=== PATIENT | female | born 1995 | race Hispanic/Latino ===

== ENCOUNTER 2019-02-18 00:51 | Emergency (ER) | payer OTHER ==
[2019-02-18 01:10] VITALS: BP 118/81; PULSE 93; RESP 20; TEMP 99; O2SAT 99
--- NOTE | 2019-02-18 01:37 | C.PDOC ---
History Of Present Illness 23 y/o female presents to ED complaining of suprapubic pain and pressure when urinating that started earlier today. Patient has history of UTI. Denies fever, vaginal bleeding or discharge, nausea, vomiting, or other complaints. Time Seen by Provider: 02/18/19 01:09 Chief Complaint (Nursing): Female Genitourinary History Per: Patient History/Exam Limitations: no limitations Onset/Duration Of Symptoms: Hrs Current Symptoms Are (Timing): Still Present Past Medical History Reviewed: Historical Data, Nursing Documentation, Vital Signs Vital Signs: Last Vital Signs Temp 99.0 F 02/18/19 01:03 Pulse 93 H 02/18/19 01:03 Resp 20 02/18/19 01:03 BP 118/81 02/18/19 01:03 Pulse Ox 99 02/18/19 01:03 Primary Care Provider: [facility] Family History: States: No Known Family Hx - Social History Hx Alcohol Use: Yes Hx Substance Use: No - Immunization History Hx Tetanus Toxoid Vaccination: Yes Hx Influenza Vaccination: No Hx Pneumococcal Vaccination: No Review Of Systems Except As Marked, All Systems Reviewed And Found Negative. Constitutional: Negative for: Fever, Chills Gastrointestinal: Positive for: Abdominal Pain (suprapubic). Negative for: Nausea, Vomiting Genitourinary: Positive for: Other (pressure with urination). Negative for: Vaginal Discharge, Vaginal Bleeding Musculoskeletal: Negative for: Back Pain Physical Exam - Physical Exam Appears: Non-toxic, No Acute Distress Skin: Warm, Dry Head: Normacephalic Eye(s): bilateral: Normal Inspection Oral Mucosa: Moist Neck: Supple Cardiovascular: Rhythm Regular, No Murmur Respiratory: Normal Breath Sounds, No Rales, No Rhonchi, No Wheezing Gastrointestinal/Abdominal: Soft, Tenderness (suprapubic tenderness), No Guarding, No Rebound Back: No CVA Tenderness Extremity: Bilateral: Atraumatic, Normal ROM Neurological/Psych: Oriented x3, Normal Speech ED Course And Treatment O2 Sat by Pulse Oximetry: 99 (RA) Pulse Ox Interpretation: Normal Medical Decision Making Medical Decision Making: ro uti. NO RLQ ttp. no othe rabd ttp. Plan: --Chlamydia/GC Test --Tylenol --UA dyuria/suprapubic pressure, NO RLQ ttp no pelvic ttp. urine with leuk. will treat empiriclaly. pt states past uti tx wtih cipro. specificlaly request cipro. asking for dc. Disposition - Disposition Referrals: [facility] [Outside] [facility] [Outside] Disposition: HOME/ ROUTINE Disposition Time: 01:00 Condition: GOOD Additional Instructions: return to er with worsening. Prescriptions: Ciprofloxacin [Cipro] 500 mg PO BID #14 tab Instructions: Urinary Tract Infections in Adults Forms: [facility] (Turkish) - Clinical Impression Clinical Impression: UTI (urinary tract infection) - Scribe Statement The provider has reviewed the documentation as recorded by the Bobbi Mayfield Provider Attestation: All medical record entries made by the Bobbi were at my direction and personally dictated by me. I have reviewed the chart and agree that the record accurately reflects my personal performance of the history, physical exam, medical decision making, and the department course for this patient. I have also personally directed, reviewed, and agree with the discharge instructions and disposition.
[2019-02-18 02:01] LABS: HCG,QUALITATIVE URINE NEGATIVE (NEGATIVE); URINE BACTERIA RARE (<OCC); URINE BILIRUBIN NEGATIVE (NEGATIVE); URINE BLOOD 3+ (NEGATIVE); URINE CLARITY Hazy (Clear); URINE COLOR Straw (YELLOW); URINE GLUCOSE (UA) NORMAL (Normal); URINE LEUKOCYTE ESTERASE 3+ Leu/uL (Negative); URINE PROTEIN NEGATIVE (NEGATIVE); URINE UROBILINOGEN NORMAL mg/dL (0.2-1.0)
== END 2019-02-18 02:20 | disposition home or self-care (01) ==
LOC: C.ER 00:51
DX: N39.0 Urinary tract infection, site not specified (principal)